=== PATIENT | male | born 1995 | race African-American/Black ===

== ENCOUNTER 2021-05-20 11:22 | Emergency (ER) | payer OTHER, SELFPAY ==
[2021-05-20 11:33] VITALS: BP 127/91; PULSE 79; RESP 18; O2SAT 100
--- NOTE | 2021-05-20 11:45 | PC.NURSE ---
Patient arrived back into ED room, refusing wheelchair use, stating he wants to leave AMA and is now refusing all care. Patient educated on risk of leaving ED without treatment including risk of another seizure. Patient was asked to stay in ED room to await AMA paperwork. Patient then quickly ambulated out of ED with a steady gait and without difficulty through ambulance bay doors, refusing to sign paperwork. EDP Low aware.
--- NOTE | 2021-05-20 11:49 | ED.GENADULT ---
HPI - General Adult General Chief complaint: Seizure Stated complaint: seizure activity in custody Time Seen by Provider: 05/20/21 11:34 History of Present Illness HPI narrative: Patient is a 26-year-old male with history of seizures who presents ER status post seizing in police custody. Patient reports he did not take his Keppra this morning. He takes 1 g twice daily. Denies anything that could have lowered his seizure threshold. Reports daily seizures. Has no reports of pain at this time. Reports he does have to have a bowel movement. Review of Systems Review of Systems: All systems reviewed & are unremarkable except as noted in HPI and below Constitutional: Constitutional: Denies chills and Denies fever(s) Comments: Sweats Cardiovascular: Cardiovascular: Denies chest pain Respiratory: Respiratory: Denies cough and Denies dyspnea Gastrointestinal: Gastrointestinal: Reports abdominal pain (Cramping related to need), Denies nausea and Denies vomiting Neurologic: Denies headache(s), Denies focal weakness and Denies numbness Comments: Seizure PMFSH Past Medical History Medical History (Updated 05/20/21 @ 11:53 by Gm Kelsey MD) Seizure disorder Surgical History Surgical History (Updated 05/20/21 @ 11:53 by Gm Kelsey MD) No pertinent past surgical history Social History Social History (Updated 05/20/21 @ 11:53 by Gm Kelsey MD) Smoking status: Current every day smoker Exam Narrative: Exam Narrative: GENERAL: Well-appearing, well-nourished, and in no acute distress. HEAD: Normocephalic, atraumatic. EYES: PERRLAand EOMI. ENT: Mucous membranes moist. EXTREMITIES: Normal range of motion. No edema. Ambulates without issue. SKIN: Warm, diaphoretic, no rash. NEURO: No focal deficits. Alert and oriented x3. PSYCH: Normal mood and affect. Course Course Emergency Course: Patient reports he has daily seizures despite taking Keppra. He missed a dose today. Patient has been released from police custody. He has gone to the bathroom and had a bowel movement and would no longer like to stay in the emergency room or be worked up for his seizure activity. He has refused to sign any AMA paperwork and verbalized understanding of the risks of leaving including disability and . Patient left without having full physical exam performed as I was allowing him to use restroom. Vital Signs Vital signs: Vital Signs Pulse Rate 79 05/20/21 11:33 Respiratory Rate 18 05/20/21 11:33 Blood Pressure 127/91 H 05/20/21 11:33 Pulse Oximetry 100 05/20/21 11:33 Pulse Rate 79 05/20/21 11:33 Respiratory Rate 18 05/20/21 11:33 Blood Pressure 127/91 H 05/20/21 11:33 Pulse Oximetry 100 05/20/21 11:33 Medical Decision Making Vital Signs Vital Signs: Vital Signs Pulse Rate 79 05/20/21 11:33 Respiratory Rate 18 05/20/21 11:33 Blood Pressure 127/91 H 05/20/21 11:33 Pulse Oximetry 100 05/20/21 11:33 Pulse Rate 79 05/20/21 11:33 Respiratory Rate 18 05/20/21 11:33 Blood Pressure 127/91 H 05/20/21 11:33 Pulse Oximetry 100 05/20/21 11:33 Discharge Plan Discharge Clinical Impression: Generalized seizure Patient Disposition: Left Against Medical Advice Condition: Guarded Prognosis Follow-up/Referrals: PHYSICIAN NOT ON STAFF,NONSTAFF [Primary Care Provider] -
== END 2021-05-20 11:45 | disposition left against medical advice (07) ==
PROVIDERS: Emergency Provider Emergency Medicine
DX: G40.409 Other generalized epilepsy and epileptic syndromes, not intractable, without status epilepticus (principal); F17.200 Nicotine dependence, unspecified, uncomplicated
CPT/HCPCS: 99283